=== PATIENT | female | born 1980 | race American Indian/Alaskan Native ===

== ENCOUNTER 2016-04-09 02:57 | Emergency (ER) | payer OTHER ==
[2016-04-09 04:19] LABS: Basophils % (Auto) 0.3 % (0.0-1.8); Eosinophils % (Auto) 1.3 % (0.0-4.3); Hematocrit 40.5 % (30.3-42.9); Hemoglobin 13.4 gm/dl (10.1-14.3); Mean Corpuscular HGB Conc 33 % (30-34); Mean Corpuscular Hemoglobin 30 pg (28-32); Mean Corpuscular Volume 89 fl (79-97); Platelet Count 244 K/mm3 (140-440); Red Blood Count 4.53 M/mm3 (3.65-5.03); Red Cell Distribution Width 13.4 % (13.2-15.2); White Blood Count 7.8 K/mm3 (4.5-11.0)
[2016-04-09 04:39] LABS: BUN/Creatinine Ratio 16.66; Blood Urea Nitrogen 10 mg/dL (7-17); Calcium 9.4 mg/dL (8.4-10.2); Carbon Dioxide 25 mmol/L (22-30); Chloride 99.5 mmol/L (98-107); Glucose 93 mg/dL (65-100); Potassium 3.9 mmol/L (3.6-5.0); Sodium 136 mmol/L (137-145)
[2016-04-09 04:49] LABS: Anion Gap 15 mmol/L
--- NOTE | 2016-04-09 10:30 | Emergency Department Report ---
ED Chest Pain HPI - General Chief Complaint: Chest Pain Stated Complaint: CHEST PAIN, & TIGHTNESS Time Seen by Provider: 04/09/16 10:22 Source: patient Mode of arrival: Ambulatory Limitations: No Limitations - History of Present Illness Initial Comments: Patient complains of intermittent chest pain involving her left chest and subscapular area since yesterday. She says it is "like a numbness". It is not related to exercise. She states that it hurts when she bends or twists and when she takes a deep breath. It is not however truly pleuritic at tidal volume. She denies cough or shortness of breath nausea vomiting dizziness or sweating. She states she has not had chest pain like this before she denies recent travel and denies leg pain. She denies family history of DVT or CAD to her knowledge. She states her father had a stroke. She does not use a control pill. MD Complaint: chest pain -: Gradual, hour(s) Onset: during rest Pain Location: left chest Pain Radiation: none Severity: mild, moderate Severity scale (0 -10): 0 Quality: other (strangely described above as a numbness) Consistency: intermittent Improves With: nothing Worsens With: movement re: denies: nausea, vomting, diaphoresis, dyspnea, sense of impending doom Other Symptoms: denies: cough, fever, syncope, rash, acid taste in mouth, leg swelling, palpitations, burping - Related Data Previous Rx's Medication Instructions Recorded Last Taken Type Ibuprofen [Motrin] 800 mg PO Q8H PRN #20 tablet 05/16/14 Unknown Rx metroNIDAZOLE [Flagyl TAB] 500 mg PO BID #20 tablet 05/16/14 Unknown Rx Acetaminophen/Codeine [Tylenol #3] 1 tab PO Q6H PRN #15 tab 12/18/14 Unknown Rx Amoxicillin/K Clav Tab [Augmentin 1 tab PO Q12HR #20 tab 12/18/14 Unknown Rx 875 mg] Prednisone [predniSONE 10 mg 10 mg PO .TAPER #1 tab.ds.pk 12/18/14 Unknown Rx (6-Day Pack, 21 Tabs)] Naproxen [Naprosyn TAB] 375 mg PO BID #10 tablet 04/09/16 Unknown Rx Allergies Allergy/AdvReac Type Severity Reaction Status Date / Time No Known Allergies Allergy Verified 02/14/15 13:00 AGUSTIN score - Agustin Score Age > 65: (0) No Aspirin use within the Past 7 Days: (0) No 3 or more CAD Risk Factors: (0) No 2 or more Angina events in past 24 hrs: (0) No Known CAD with more than 50% Stenosis: (0) No Elevated Cardiac Markers: (0) No ST Deviation Greater than 0.5mm: (0) No AGUSTIN Score: 0 ED Review of Systems ROS: Stated complaint: CHEST PAIN, & TIGHTNESS Other details as noted in HPI Constitutional: denies: chills, fever Eyes: denies: eye pain, eye discharge, vision change ENT: denies: ear pain, throat pain Respiratory: denies: cough, shortness of breath, wheezing Cardiovascular: chest pain. denies: palpitations Endocrine: no symptoms reported Gastrointestinal: denies: abdominal pain, nausea, diarrhea Genitourinary: denies: urgency, dysuria, discharge Musculoskeletal: denies: back pain, joint swelling, arthralgia Skin: denies: rash, lesions Neurological: denies: headache, weakness, paresthesias Psychiatric: denies: anxiety, depression Hematological/Lymphatic: denies: easy bleeding, easy bruising ED Past Medical Hx - Past Medical History Previous Medical History?: Yes Additional medical history: Anxiety - Surgical History Past Surgical History?: Yes Additional Surgical History: ORAL SURGERY, 1 - Social History Smoking Status: Never Smoker Substance Use Type: Alcohol - Medications Home Medications: Home Medications Medication Instructions Recorded Confirmed Last Taken Type Ibuprofen [Motrin] 800 mg PO Q8H PRN #20 tablet 05/16/14 Unknown Rx metroNIDAZOLE [Flagyl TAB] 500 mg PO BID #20 tablet 05/16/14 Unknown Rx Acetaminophen/Codeine [Tylenol #3] 1 tab PO Q6H PRN #15 tab 12/18/14 Unknown Rx Amoxicillin/K Clav Tab [Augmentin 1 tab PO Q12HR #20 tab 12/18/14 Unknown Rx 875 mg] Prednisone [predniSONE 10 mg 10 mg PO .TAPER #1 tab.ds.pk 12/18/14 Unknown Rx (6-Day Pack, 21 Tabs)] Naproxen [Naprosyn TAB] 375 mg PO BID #10 tablet 04/09/16 Unknown Rx ED Physical Exam - General Limitations: No Limitations General appearance: alert, in no apparent distress, obese - Head Head exam: Present: atraumatic, normocephalic - Eye Eye exam: Present: normal appearance. Absent: scleral icterus - ENT ENT exam: Present: mucous membranes moist - Neck Neck exam: Present: normal inspection - Respiratory Respiratory exam: Present: normal lung sounds bilaterally. Absent: respiratory distress - Cardiovascular Cardiovascular Exam: Present: regular rate, normal rhythm. Absent: systolic murmur, diastolic murmur, rubs, gallop - GI/Abdominal GI/Abdominal exam: Present: soft, normal bowel sounds. Absent: distended, tenderness, guarding, rebound, rigid, organomegaly, mass - Extremities Exam Extremities exam: Present: normal inspection, full ROM. Absent: tenderness, normal capillary refill, pedal edema, joint swelling, calf tenderness - Back Exam Back exam: Present: normal inspection - Neurological Exam Neurological exam: Present: alert, oriented X3, CN II-XII intact. Absent: motor sensory deficit - Psychiatric Psychiatric exam: Present: normal affect, normal mood - Skin Skin exam: Present: warm, dry, intact, normal color. Absent: rash ED Course Vital Signs 04/09/16 04/09/16 04/09/16 02:58 08:04 08:47 Temperature 98.1 F 98.6 F 98.3 F Pulse Rate 103 H 85 84 Respiratory 20 18 23 Rate Blood Pressure 156/98 139/88 Blood Pressure 112/72 [Right] O2 Sat by Pulse 99 100 98 Oximetry 04/09/16 04/09/16 09:00 09:06 Temperature Pulse Rate 87 Respiratory 18 16 Rate Blood Pressure 102/58 Blood Pressure [Right] O2 Sat by Pulse 99 98 Oximetry - Reevaluation(s) Reevaluation #1: Patient without any significant chest pain in the emergency department. 3 negative troponins. Unchanged EKG. Outpatient evaluation is recommended. 04/09/16 15:02 ED Medical Decision Making - Lab Data Result diagrams: 04/09/16 03:57 04/09/16 03:57 Laboratory Results - last 24 hr 04/09/16 04/09/16 04/09/16 03:57 03:57 03:57 WBC 7.8 RBC 4.53 Hgb 13.4 Hct 40.5 MCV 89 MCH 30 MCHC 33 RDW 13.4 Plt Count 244 Lymph % (Auto) 34.9 Tyrrell % (Auto) 8.1 H Eos % (Auto) 1.3 Baso % (Auto) 0.3 Lymph # 2.7 Tyrrell # 0.6 Eos # 0.1 Baso # 0.0 Seg Neutrophils % 55.4 Seg Neutrophils # 4.3 Sodium 136 L Potassium 3.9 Chloride 99.5 Carbon Dioxide 25 Anion Gap 15 BUN 10 Creatinine 0.6 L Estimated GFR > 60 BUN/Creatinine Ratio 16.66 Glucose 93 Calcium 9.4 Troponin T < 0.010 HCG, Qual Negative 04/09/16 04/09/16 06:45 09:25 WBC RBC Hgb Hct MCV MCH MCHC RDW Plt Count Lymph % (Auto) Tyrrell % (Auto) Eos % (Auto) Baso % (Auto) Lymph # Tyrrell # Eos # Baso # Seg Neutrophils % Seg Neutrophils # Sodium Potassium Chloride Carbon Dioxide Anion Gap BUN Creatinine Estimated GFR BUN/Creatinine Ratio Glucose Calcium Troponin T < 0.010 < 0.010 HCG, Qual Laboratory Results - last 24 hr 04/09/16 04/09/16 04/09/16 03:57 03:57 03:57 WBC 7.8 RBC 4.53 Hgb 13.4 Hct 40.5 MCV 89 MCH 30 MCHC 33 RDW 13.4 Plt Count 244 Lymph % (Auto) 34.9 Tyrrell % (Auto) 8.1 H Eos % (Auto) 1.3 Baso % (Auto) 0.3 Lymph # 2.7 Tyrrell # 0.6 Eos # 0.1 Baso # 0.0 Seg Neutrophils % 55.4 Seg Neutrophils # 4.3 PT INR APTT D-Dimer Sodium 136 L Potassium 3.9 Chloride 99.5 Carbon Dioxide 25 Anion Gap 15 BUN 10 Creatinine 0.6 L Estimated GFR > 60 BUN/Creatinine Ratio 16.66 Glucose 93 Calcium 9.4 Troponin T < 0.010 HCG, Qual Negative 04/09/16 04/09/16 04/09/16 06:45 09:25 11:48 WBC RBC Hgb Hct MCV MCH MCHC RDW Plt Count Lymph % (Auto) Tyrrell % (Auto) Eos % (Auto) Baso % (Auto) Lymph # Tyrrell # Eos # Baso # Seg Neutrophils % Seg Neutrophils # PT 13.8 INR 1.07 APTT 32.4 D-Dimer < 135.00 Sodium Potassium Chloride Carbon Dioxide Anion Gap BUN Creatinine Estimated GFR BUN/Creatinine Ratio Glucose Calcium Troponin T < 0.010 < 0.010 HCG, Qual - EKG Data -: EKG Interpreted by Me EKG shows normal: sinus rhythm, axis, intervals, QRS complexes Rate: normal - EKG Data When compared to previous EKG there are: no significant change Interpretation: nonspecific ST-T wave gwendolyn (unchanged from previous) Critical care attestation.: If time is entered above; I have spent that time in minutes in the direct care of this critically ill patient, excluding procedure time. ED Disposition Clinical Impression: Chest pain, musculoskeletal Disposition: DISCHARGED TO HOME OR SELFCARE Is pt being admited?: No Does the pt Need Aspirin: No Condition: Stable Instructions: Chest Pain (ED), Musculoskeletal Pain (ED) Additional Instructions: Further evaluation with your primary care physician in [place] is recommended. See them tomorrow. Return any recurrent chest pain especially if it associated with any other symptoms. Prescriptions: Naproxen [Naprosyn TAB] 375 mg PO BID #10 tablet Referrals: PRIMARY CARE, [Primary Care Provider] - 24 Hours Time of Disposition: 15:03
[2016-04-09 12:26] LABS: INR 1.07 (0.87-1.13)
[2016-04-09 12:27] LABS: Partial Thromboplastin Time 32.4 Sec. (24.2-36.6)
[2016-04-09 15:29] VITALS: BP 93/48
--- NOTE | 2016-04-10 08:15 | XRay Report ---
ROUTINE CHEST, TWO VIEWS: PA and lateral views demonstrate the heart and mediastinal contour to be of normal size and shape. The lungs are clear and fully expanded and the soft tissues and bony structures are normal. IMPRESSION: Normal study.
== END 2016-04-09 15:29 | disposition home or self-care (01) ==
LOC: ED 02:57
DX: R07.89 Other chest pain (principal); F41.9 Anxiety disorder, unspecified
CPT/HCPCS: 36415; 71020; 80048; 84484; 84703; 85025; 85379; 85610; 85730; 93005; 93010

== ENCOUNTER 2021-02-19 04:59 | Inpatient (IN) | payer OTHER ==
[2021-02-19] MEDS ORDERED: LIDOCAINE (2%) 20 MG/1 ML VIAL 20 ML MDV INFILTRATI ONE (05:47)
[2021-02-19] MEDS ORDERED: fentaNYL 100 MCG/2 ML INJ IV PRN (05:47)
[2021-02-19] MEDS ORDERED: OXYTOCIN 10 UNIT/1 ML INJ IM PRN (05:47)
[2021-02-19] MEDS ORDERED: TERBUTALINE 1 MG/1 ML INJ SUB-Q PRN (05:47)
[2021-02-19] MEDS ORDERED: METHYLERGONOVINE MALEATE 0.2 MG/ML VIAL IM PRN (05:47)
[2021-02-19] MEDS ORDERED: AMPICILLIN/NS 2 GM/100 ML 2 GM/100 ML BAG IV ONE (05:47)
[2021-02-19] MEDS ORDERED: MINERAL OIL 30 ML ORAL LIQD PO PRN (05:47)
[2021-02-19] MEDS ORDERED: miSOPROStol 200 MCG TAB PR PRN (05:47)
[2021-02-19] MEDS ORDERED: ONDANSETRON 4 MG/2 ML INJ IV PRN ×3 (05:47→15:48)
[2021-02-19] MEDS ORDERED: LOPERAMIDE 2 MG CAP PO PRN (05:47)
[2021-02-19] MEDS ORDERED: ACETAMINOPHEN 325 MG TAB PO PRN (05:47)
[2021-02-19] MEDS ORDERED: CARBOPROST TROMETHAMINE 250 MCG/1 ML INJ IM PRN (05:47)
[2021-02-19] MEDS ORDERED: BUTORPHANOL 2 MG/1 ML INJ IV PRN (05:47)
[2021-02-19] MEDS ORDERED: OXYTOCIN DRIP 30 UNITS/500 ML BAG IV SCH ×2 (06:00)
[2021-02-19 06:58] LABS: Hematocrit 39.8 % (30.3-42.9); Hemoglobin 13.3 gm/dl (10.1-14.3); Mean Corpuscular HGB Conc 33 % (30-34); Mean Corpuscular Volume 95 fl (79-97); Platelet Count 282 K/mm3 (140-440); Red Blood Count 4.17 M/mm3 (3.65-5.03); Red Cell Distribution Width 13.6 % (13.2-15.2)
[2021-02-19] MEDS: LACTATED RINGERS 1,000 ML IV SCH ×2 (10:16→12:50)
[2021-02-19] MEDS ORDERED: ePHEDrine SULFATE 50 MG/1 ML INJ IV PRN (10:25)
[2021-02-19] MEDS ORDERED: NalbUPHINE 10 MG/1 ML INJ IV PRN (10:25)
[2021-02-19] MEDS ORDERED: diphenhydrAMINE 50 MG/ML VIAL IV PRN (10:25)
[2021-02-19] MEDS ORDERED: NALOXONE 2 MG/2 ML INJ IV PRN (10:25)
[2021-02-19] MEDS ORDERED: LACTATED RINGERS 250 ML IV SOLN IV ONE (11:00)
[2021-02-19] MEDS ORDERED: fentaNYL-BUPIV 2 MCG/ML-0.125% 200 MCG/100 ML BAG EPIDURAL SCH (11:00)
--- NOTE | 2021-02-19 11:16 | Anesthesia Consultation ---
Anesthesia Consult and Med Hx Date of service: 02/19/21 - Airway Anesthetic Teeth Evaluation: Good ROM Head & Neck: Adequate Mental/Hyoid Distance: Adequate Mallampati Class: Class III Intubation Access Assessment: Possibly Difficult - Pulmonary Exam CTA: Yes - Cardiac Exam Cardiac Exam: RRR - Pre-Operative Health Status ASA Pre-Surgery Classification: ASA2, ASA3 Proposed Anesthetic Plan: Epidural - Pulmonary Hx Smoking: No Hx Asthma: No Hx Sleep Apnea: No - Cardiovascular System Hx Hypertension: No Hx Heart Attack/AMI: No Hx Angina: No - Central Nervous System Hx Seizures: No Hx Back Pain: Yes (sciatica) Hx Psychiatric Problems: No - Gastrointestinal Hx Gastroesophageal Reflux Disease: No - Endocrine Hx Renal Disease: No Hx Liver Disease: No Hx Insulin Dependent Diabetes: No Hx Non-Insulin Dependent Diabetes: No Hx Hypothyroidism: No Hx Hyperthyroidism: No - Hematic Hx Sickle Cell Disease: No - Other Systems Hx Alcohol Use: (not since ) Hx Obesity: Yes
--- NOTE | 2021-02-19 11:17 | Progress Note ---
Labor Epidural - Labor Epidural Start Time: 09:52 Stop Time: 10:05 Performed by:: WILEY JOSE Procedure: Patient is requesting epidural for labor and pain. H&P, labs were reviewed. Patient IDed, H&P reviewed, all questions and concerns were answered, and consent was signed. Timeout was performed at bedside. Patient in sitting position. Sterile prep and drape was performed. 3ml of 1% lidocaine skin wheal at L[3]- L [4]. 17-gauge Tuohy epidural needle was advanced to loss of resistance with air technique 7cm. Negative CSF negative blood. Epidural catheter advanced to [12] centimeters. [negative] Aspiration [negative] test dose. Sterile dressing applied. Patient tolerated procedure.
[2021-02-19] MEDS: ePHEDrine SULFATE 50 MG/1 ML INJ IV PRN ×3 (11:18→11:59)
--- NOTE | 2021-02-19 11:19 | Progress Note ---
Labor Epidural - Labor Epidural Start Time: 10:47 Stop Time: 10:57 Performed by:: WILEY JOSE Procedure: Patient assessed and has received no pain relief from epidural. She is requesting to replace the epidural. H&P, labs were reviewed. Patient IDed, H&P reviewed, all questions and concerns were answered, and consent was signed. Timeout was performed at bedside. Patient in sitting position. Sterile prep and drape was performed. 3ml of 1% lidocaine skin wheal at L[3]- L [4]. 17- gauge Tuohy epidural needle was advanced to loss of resistance with air technique 9cm. Negative CSF negative blood. Epidural catheter advanced to [14] centimeters. [negative] Aspiration [negative] test dose. Sterile dressing applied. Patient tolerated procedure.
--- NOTE | 2021-02-19 15:45 | History and Physical Report ---
History of Present Illness Date of examination: 02/19/21 Date of admission: 02/19/21 05:48 Chief complaint: Contractions History of present illness: 40-year-old -0-1-0 at 38.6 weeks who presents to labor and delivery with a complaint of leakage of fluid and irregular uterine contractions. The patient initiated her care in the first trimester of her . Her course has been complicated by advanced maternal age, echogenic intracardiac foci seen on ultrasound, reactive are RPR, and uterine fibroids. Patient is GBS negative Past History Past Medical History: no pertinent history Past Surgical History: no surgical history Social history: single - Obstetrical History Expected Date of Delivery: 02/27/21 Actual Gestation: 38 Week(s) 6 Day(s) : 2 Para: 0 Hx # Term Pregnancies: 0 Number of Pregnancies: 0 Spontaneous Abortions: 1 Induced : 0 Number of Living Children: 0 Medications and Allergies Allergies Allergy/AdvReac Type Severity Reaction Status Date / Time No Known Allergies Allergy Verified 05/16/14 13:00 Home Medications Medication Instructions Recorded Confirmed Last Taken Type Ibuprofen [Motrin] 800 mg PO Q8H PRN #20 tablet 05/16/14 Unknown Rx metroNIDAZOLE [Flagyl TAB] 500 mg PO BID #20 tablet 05/16/14 Unknown Rx Acetaminophen/Codeine [Tylenol #3] 1 tab PO Q6H PRN #15 tab 12/18/14 Unknown Rx Amoxicillin/K Clav Tab [Augmentin 1 tab PO Q12HR #20 tab 12/18/14 Unknown Rx 875 mg] Prednisone [predniSONE 10 mg 10 mg PO .TAPER #1 tab.ds.pk 12/18/14 Unknown Rx (6-Day Pack, 21 Tabs)] Naproxen [Naprosyn TAB] 375 mg PO BID #10 tablet 04/09/16 Unknown Rx Active Meds: Active Medications Acetaminophen (Acetaminophen 325 Mg Tab) 650 mg PO Q4H PRN PRN Reason: Pain, Mild (1-3) Butorphanol Tartrate (Butorphanol 2 Mg/1 Ml Inj) 1 mg IV Q2H PRN PRN Reason: Pain, Moderate(4-6) LABOR PAIN Carboprost Tromethamine (Carboprost Tromethamine 250 Mcg/1 Ml Inj) 250 mcg IM ONCE PRN PRN Reason: Uterine Bleeding Diphenhydramine HCl (Diphenhydramine 50 Mg/Ml Vial) 12.5 mg IV Q2H PRN PRN Reason: Itching Ephedrine Sulfate (Ephedrine Sulfate 50 Mg/1 Ml Inj) 10 mg IV Q2M PRN PRN Reason: Hypotension Fentanyl (Fentanyl 100 Mcg/2 Ml Inj) 100 mcg IV Q2H PRN PRN Reason: Pain,Severe (7-10) LABOR PAIN Last Admin: 02/19/21 08:07 Dose: 100 mcg Documented by: Oxytocin/Sodium Chloride (Pitocin/Ns 30 Unit/500ml) 30 units in 500 mls @ 2 mls/hr IV TITR SARAH; Protocol Last Admin: 02/19/21 11:49 Dose: 2 mls/hr, 2 mls/hr Documented by: Lactated Ringer's (Lactated Ringers) 1,000 mls @ 125 mls/hr IV DIRECT SARAH Last Admin: 02/19/21 12:50 Dose: 125 mls/hr Documented by: Oxytocin/Sodium Chloride (Pitocin/Ns 30 Unit/500ml) 30 units in 500 mls @ 40 mls/hr IV TITR SARAH; Protocol Fentanyl/Bupivacaine/Sodium Chlor (Fentanyl-Bupiv 2 Mcg/Ml-0.125%) 200 mcg in 100 mls @ 12 mls/hr EPIDURAL TITR SARAH; Protocol Last Admin: 02/19/21 11:29 Dose: 12 mls/hr Documented by: Loperamide HCl (Loperamide 2 Mg Cap) 2 mg PO ONCE PRN PRN Reason: give with Hemabate Methylergonovine Maleate (Methylergonovine Maleate 0.2 Mg/Ml Vial) 0.2 mg IM ONCE PRN PRN Reason: Uterine Bleeding Mineral Oil (Mineral Oil 30 Ml Oral Liqd) 30 ml PO QHS PRN PRN Reason: Constipation Misoprostol (Misoprostol 200 Mcg Tab) 800 mcg KS ONCE PRN PRN Reason: Uterine Bleeding Nalbuphine HCl (Nalbuphine 10 Mg/1 Ml Inj) 2.5 mg IV Q2H PRN PRN Reason: Itching Naloxone HCl (Naloxone 2 Mg/2 Ml Inj) 0.2 mg IV Q5M PRN PRN Reason: Respiratory sedation Ondansetron HCl (Ondansetron 4 Mg/2 Ml Inj) 4 mg IV Q8H PRN PRN Reason: Nausea And Vomiting Ondansetron HCl (Ondansetron 4 Mg/2 Ml Inj) 4 mg IV Q8H PRN PRN Reason: Nausea And Vomiting Oxytocin (Oxytocin 10 Unit/1 Ml Inj) 10 unit IM ONCE PRN PRN Reason: Uterine Bleeding Terbutaline Sulfate (Terbutaline 1 Mg/1 Ml Inj) 0.25 mg SUB-Q ONCE PRN PRN Reason: Hyperstimulation/Hypertonicity Review of Systems All systems: negative Genitourinary: leakage of fluid, contractions - Vital Signs Vital signs: Vital Signs Pulse BP 82 132/96 02/19/21 05:20 02/19/21 05:20 Temp Pulse Resp BP Pulse Ox 98.4 F 112 H 18 118/57 100 02/19/21 13:00 02/19/21 15:37 02/19/21 05:21 02/19/21 15:33 02/19/21 15:37 - Physical Exam Breasts: Positive: deferred Cardiovascular: Regular rate Lungs: Positive: Clear to auscultation Abdomen: Positive: normal appearance Results Result Diagrams: 02/19/21 06:30 All other labs normal. Assessment and Plan - Patient Problems (1) Spontaneous rupture of amniotic membranes Current Visit: Yes Status: Acute Plan to address problem: Admit to labor and delivery (2) Active labor at term Current Visit: Yes Status: Acute
[2021-02-19] MEDS ORDERED: PROMETHAZINE 25 MG RECT SUPP PR PRN (15:48)
[2021-02-19] MEDS ORDERED: WITCH HAZEL/ GLYCERIN PAD TP PRN (15:48)
[2021-02-19] MEDS ORDERED: LANOLIN/ZINC/DIMETHICONE (LANSINOH) 7 GM TP PRN (15:48)
[2021-02-19] MEDS ORDERED: MAGNESIUM HYDROXIDE (MOM) ORAL LIQD UDC PO PRN (15:48)
[2021-02-19] MEDS ORDERED: PROMETHAZINE 25 MG TAB PO PRN (15:48)
[2021-02-19] MEDS ORDERED: diphenhydrAMINE 25 MG CAP PO PRN (15:48)
--- NOTE | 2021-02-19 15:48 | Procedure Note ---
OB Delivery Note - Delivery Date of Delivery: 02/19/21 Surgeon: ROSALINE ANDERSON Estimated blood loss: other (150 mL) - Vaginal Delivery presentation: vertex Delivery position: OA Delivery monitor: external FHT, external uterine Route of delivery: Delivery placenta: spontaneous Delivery cord: nuchal cord Episiotomy: none Delivery laceration: 1st degree Delivery repair: vicryl Anesthesia: epidural Delivery comments: The patient progressed to complete complete +1 and post to deliver a liveborn male infant with Apgars of 8 and 9 and weight of 6 pounds 11 ounces. After d elivery of the head the infant was noted to have a tight nuchal cord that was surgically reduced. The shoulders delivered without difficulty. The was bulb suctioned after delivery. And placed on the patient's abdomen. The placenta delivered spontaneously intact with a three-vessel cord. The patient sustained a midline first-degree laceration for which a [id number] stitch was placed with 2-0 Vicryl. Estimated blood loss 150 mL - Infant A at 1 minute: 8 at 5 minutes: 9 Gender: Male (Weight 6 pounds 11 ounces)
[2021-02-19] MEDS ORDERED: oxyCODONE /ACETAMINOPHEN 5-325MG TAB PO PRN (15:49)
[2021-02-19] MEDS: IBUPROFEN 600 MG TAB PO SCH (20:40)
[2021-02-20] MEDS: IBUPROFEN 600 MG TAB PO SCH ×2 (04:32→16:54)
[2021-02-20 06:42] LABS: Hematocrit 31.9 % (30.3-42.9); Hemoglobin 10.7 gm/dl (10.1-14.3)
--- NOTE | 2021-02-20 10:23 | Progress Note ---
Assessment and Plan - Patient Problems (1) Spontaneous rupture of amniotic membranes Current Visit: Yes Status: Acute Plan to address problem: Patient doing well Discharge home (2) Active labor at term Current Visit: Yes Status: Acute Subjective - Subjective Date of service: 02/20/21 Interval history: Patient denies any significant symptoms. She reports her pain is controlled. She is ambulating voiding without difficulty. Patient reports: appetite normal, voiding normally, pain well controlled : doing well Objective - Vital Signs Latest vital signs: Vital Signs Temp Pulse Resp BP Pulse Ox Pulse Ox 02/20/21 08:30 98 02/20/21 07:30 98.3 F 94 H 18 114/60 98 02/20/21 00:35 97.6 F 117 H 20 113/62 100 02/19/21 20:55 98 02/19/21 20:51 98.1 F 103 H 18 124/68 98 02/19/21 18:30 100 02/19/21 18:00 100 H 100 02/19/21 17:55 93 H 100 02/19/21 17:50 95 H 100 02/19/21 17:45 100 H 100 02/19/21 17:40 95 H 100 02/19/21 17:37 29 L 02/19/21 17:35 92 H 79 L 02/19/21 17:30 69 68 L 02/19/21 17:25 66 91 02/19/21 17:24 99 H 128/66 97 02/19/21 17:19 79 84 02/19/21 17:14 102 H 100 02/19/21 17:09 103 H 100 02/19/21 17:04 100 H 100 02/19/21 16:59 103 H 100 02/19/21 16:54 99 H 133/77 94 02/19/21 16:49 103 H 85 02/19/21 16:45 78 L 02/19/21 16:43 56 L 56 L 02/19/21 16:40 100 H 77 L 02/19/21 16:38 94 H 99 02/19/21 16:33 98 H 100 02/19/21 16:28 46 L 02/19/21 16:27 91 H 52 L 02/19/21 16:22 30 L 54 L 02/19/21 16:19 101 H 126/69 02/19/21 16:17 116 H 88 02/19/21 16:14 97 H 117/62 02/19/21 16:12 106 H 98 02/19/21 16:09 112 H 123/72 02/19/21 16:07 104 H 99 02/19/21 16:02 103 H 94 02/19/21 15:58 115 H 70 L 02/19/21 15:57 110 H 83 L 02/19/21 15:52 106 H 100 02/19/21 15:48 109 H 111/57 02/19/21 15:47 111 H 87 02/19/21 15:42 91 H 82 L 02/19/21 15:37 112 H 100 02/19/21 15:33 111 H 118/57 02/19/21 15:32 111 H 100 02/19/21 15:27 134 H 121/68 100 02/19/21 15:22 105 H 100 02/19/21 15:18 95 H 133/66 77 L 02/19/21 15:17 98 H 100 02/19/21 15:12 118 H 100 02/19/21 15:11 99 H 118/60 02/19/21 15:08 108 H 118/57 02/19/21 15:07 107 H 100 02/19/21 15:04 68 60 L 02/19/21 15:02 111 H 120/63 02/19/21 15:01 113 H 100 02/19/21 14:58 105 H 125/63 02/19/21 14:56 66 92 02/19/21 14:55 113 H 100 02/19/21 14:51 99 H 135/92 59 L 02/19/21 14:50 105 H 100 02/19/21 14:45 99 H 70 L 02/19/21 14:41 97 H 119/63 02/19/21 14:40 98 H 100 02/19/21 14:37 100 H 118/64 94 02/19/21 14:35 97 H 100 02/19/21 14:33 98 H 120/68 02/19/21 14:30 95 H 100 02/19/21 14:26 106 H 120/63 02/19/21 14:25 104 H 100 02/19/21 14:22 82 112/61 02/19/21 14:20 106 H 100 02/19/21 14:16 105 H 110/67 02/19/21 14:15 87 100 02/19/21 14:11 90 126/62 02/19/21 14:10 106 H 91 02/19/21 14:08 93 H 94 02/19/21 14:06 112 H 118/63 02/19/21 14:05 104 H 98 02/19/21 14:02 102 H 122/62 92 02/19/21 14:00 115 H 96 02/19/21 13:57 99 H 122/65 02/19/21 13:55 113 H 100 02/19/21 13:51 109 H 131/59 02/19/21 13:50 95 H 100 02/19/21 13:46 121 H 109/66 02/19/21 13:45 104 H 99 02/19/21 13:41 122 H 106/64 02/19/21 13:40 120 H 99 02/19/21 13:36 111 H 116/65 02/19/21 13:35 88 100 02/19/21 13:31 113 H 110/59 02/19/21 13:30 97 H 100 02/19/21 13:27 125 H 107/58 02/19/21 13:25 114 H 100 02/19/21 13:21 99 H 118/57 02/19/21 13:20 94 H 100 02/19/21 13:16 88 106/57 02/19/21 13:15 101 H 100 02/19/21 13:12 83 112/60 02/19/21 13:10 101 H 100 02/19/21 13:07 88 110/57 02/19/21 13:05 91 H 100 02/19/21 13:03 98 H 108/60 94 02/19/21 13:00 98.4 F 92 H 100 02/19/21 12:56 104 H 98/53 02/19/21 12:55 96 H 100 02/19/21 12:51 99 H 96/51 02/19/21 12:50 102 H 100 02/19/21 12:47 91 H 98/52 02/19/21 12:45 89 100 02/19/21 12:41 100 H 102/54 02/19/21 12:40 94 H 100 02/19/21 12:36 105 H 112/67 02/19/21 12:35 97 H 100 02/19/21 12:31 99 H 108/67 02/19/21 12:30 99 H 99 02/19/21 12:27 112 H 97/61 02/19/21 12:26 102 H 88/49 02/19/21 12:25 65 100 02/19/21 12:21 101 H 113/60 02/19/21 12:20 120 H 97 02/19/21 12:16 90 111/57 02/19/21 12:15 90 97 02/19/21 12:12 82 107/55 02/19/21 12:10 112 H 96 02/19/21 12:07 97 H 101/58 02/19/21 12:05 102 H 97 02/19/21 12:00 109 H 105/55 97 02/19/21 11:56 107 H 80/43 02/19/21 11:54 108 H 89/55 98 02/19/21 11:49 99 H 97 02/19/21 11:45 98.6 F 02/19/21 11:44 96 H 99 02/19/21 11:40 108 H 113/61 02/19/21 11:39 116 H 100 02/19/21 11:38 121 H 91/55 02/19/21 11:36 105 H 109/61 02/19/21 11:34 89 116/61 100 02/19/21 11:32 123 H 86/46 02/19/21 11:30 121 H 105/53 89 02/19/21 11:29 94 H 98 02/19/21 11:28 98 H 107/63 02/19/21 11:26 104 H 104/61 02/19/21 11:24 110 H 99/60 100 02/19/21 11:22 113 H 97/58 02/19/21 11:20 107 H 100/55 02/19/21 11:19 113 H 100 02/19/21 11:18 113 H 89/50 02/19/21 11:16 117 H 88/50 02/19/21 11:14 123 H 90/50 96 02/19/21 11:12 97 H 95/54 02/19/21 11:10 104 H 96/54 02/19/21 11:09 102 H 99 02/19/21 11:08 116 H 97/53 02/19/21 11:06 107 H 110/55 02/19/21 11:04 110 H 121/65 100 02/19/21 11:02 112 H 128/67 02/19/21 11:00 110 H 138/76 02/19/21 10:59 99 H 99 02/19/21 10:58 101 H 123/75 02/19/21 10:56 88 122/71 02/19/21 10:54 105 H 124/74 100 02/19/21 10:52 90 135/75 02/19/21 10:50 90 133/71 02/19/21 10:49 102 H 98 02/19/21 10:48 97 H 118/67 02/19/21 10:46 92 H 131/79 02/19/21 10:44 104 H 99 02/19/21 10:43 86 140/78 02/19/21 10:40 97 H 139/91 02/19/21 10:39 88 99 02/19/21 10:38 85 132/79 02/19/21 10:36 92 H 128/78 02/19/21 10:34 90 140/80 99 02/19/21 10:32 96 H 134/84 02/19/21 10:30 107 H 130/79 02/19/21 10:29 96 H 99 02/19/21 10:28 97 H 134/82 02/19/21 10:26 102 H 125/78 02/19/21 10:24 89 127/79 99 Intake and Output 02/19/21 02/20/21 02/20/21 22:59 06:59 14:59 Intake Total 240 240 540 Output Total 730 300 Balance -490 -60 540 Intake: Oral 540 Intake, Free Water 240 240 Output: Urine 730 300 Uretheral (Gil) 380 Void 350 300 Other: Total, Intake Amount 240 Total, Output Amount 350 300 # Voids Void 1 1 # Bowel Movements 1 - Exam Uterus: Present: normal, firm
--- NOTE | 2021-02-20 10:24 | Discharge Summary ---
Providers - Providers Date of Admission: 02/19/21 05:48 Date of discharge: 02/20/21 Attending physician: ROSALINE ANDERSON Primary care physician: ROSALINE ANDERSON Hospitalization Reason for admission: rupture of membranes Delivery: Discharge diagnosis: IUP at term delivered baby: male Hospital course: Patient was admitted with gross rupture membranes. She underwent augmentation with a successful vaginal delivery. Her course was uneventful. Condition at discharge: Good Disposition: 01 HOME / SELF CARE / HOMELESS - Discharge Diagnoses (1) Spontaneous rupture of amniotic membranes Status: Acute (2) Active labor at term Status: Acute Plan - Discharge Medications Prescriptions: Ibuprofen [Motrin] 800 mg PO Q8HR PRN #30 tablet PRN Reason: Pain , Severe (7-10) HYDROcodone/APAP 5-325 [Mineral 5/325] 1 each PO Q6HR PRN #15 tablet PRN Reason: Pain - Provider Discharge Summary Activity: no sex for 6 weeks, no heavy lifting 4 weeks, no strenuous exercise Diet: routine Instructions: routine Additional instructions: [] Smoking cessation referral if applicable(refer to patient education folder for contact #) [] Refer to [facility] Booklet Call your doctor immediately for: * Fever > 100.5 * Heavy vaginal bleeding ( >1 pad per hour) * Severe persistent headache * Shortness of breath * Reddened, hot, painful area to leg or breast * Schedule visit in 4 weeks - Follow up plan
--- NOTE | 2021-02-20 14:43 | Post Anesthesia Evaluation ---
- Post Anesthesia Evaluation Patient Participated: Yes Airway Patent: Yes Stable Respiratory Function: Yes Nausea/Vomiting: No Temp > 96.8F: Yes Pain Manageable: Yes Adequeate Hydration: Yes Anesthesia Complications: No Block Receding Appropriately: Yes Patient on Ventilator: No
[2021-02-20 18:37] VITALS: BP 129/76
== END 2021-02-20 19:00 | disposition home or self-care (01) | DRG 775 ==
LOC: TRG 04:59 → APU 05:00 → TRG 05:47 → LD 05:48 → OB 18:32
PROVIDERS: ADMIT Obstetrics & Gynecology; ATTEND Obstetrics & Gynecology
PROC: 10E0XZZ Delivery of Products of Conception, External Approach (ICD-10-PCS; principal; 2021-02-19)
PROC: 0HQ9XZZ Repair Perineum Skin, External Approach (ICD-10-PCS; 2021-02-19)
PROC: 3E0R3BZ Introduction of Anesthetic Agent into Spinal Canal, Percutaneous Approach (ICD-10-PCS; 2021-02-19)
PROC: 00HU33Z Insertion of Infusion Device into Spinal Canal, Percutaneous Approach (ICD-10-PCS; 2021-02-19)
DX: O69.81X0 Labor and delivery complicated by cord around neck, without compression, not applicable or unspecified (principal); Z37.0 Single live birth; Z3A.38 38 weeks gestation of pregnancy; O70.0 First degree perineal laceration during delivery
CPT/HCPCS: 36415; 59025; 85014; 85018; 85027; 86592; 86850; 86900; 86901; 96374; 96376; 99211; G0378; J3490; G0463; J0290; J2590; J3010; J7120; U0003